=== PATIENT | female | born 1955 | race Caucasian/White ===

== ENCOUNTER 2016-08-02 22:59 | Emergency (ER) | payer OTHER ==
[2016-08-02 23:13] VITALS: TEMP 98.2
--- NOTE | 2016-08-03 | EDPHY ---
H & P Stated Complaint: cut on left 4th digit on ana cristina 1.5 hours - Personal History Current Tetanus/Diphtheria Vaccine: Yes Current Tetanus Diphtheria and Acellular Pertussis (TDAP): Yes Tetanus Vaccine Date: 2012 - Medical/Surgical History Hx Asthma: No Hx Chronic Respiratory Disease: No Hx Diabetes: No Hx Cardiac Disease: No Hx Renal Disease: No Hx Cirrhosis: No Hx Alcoholism: No Hx HIV/AIDS: No Hx Splenectomy or Spleen Trauma: No Other PMH: depression, foot surgeries - Social History Smoking Status: Never smoked HPI/ROS: Chief complaint: Left 4th finger laceration History of present illness: This is a 60-year-old female who presents to the emergency department for a laceration to the tip of her left 4th finger. Patient was using a food ana cristina when she struck the tip of her finger approximately an hour and half ago. She states it persistently bleeds. She denies other associated signs or symptoms including no abnormal coolness or paresthesias in the finger. No other injuries reported. Her tetanus is up-to- date. (Shalom Mejía) - Physical Exam Exam: General: Alert, nontoxic Skin: There is a 0.5 cm laceration to the tip of the left 4th finger. Inspection does not reveal foreign bodies or deep structure injuries. Musculoskeletal: Patient is flexing and extending her finger in the DIP, PIP and MCP joint well. Vascular: Capillary refill brisk in the left 4th finger. Radial pulses 2+. Neurologic: Sensation intact in the 4th finger using light touch and two-point discrimination. (Shalom Mejía) Constitutional: Initial Vital Signs Temperature (C) 36.8 C 08/02/16 23:09 Heart Rate 88 08/02/16 23:09 Respiratory Rate 14 08/02/16 23:09 Blood Pressure 106/83 H 08/02/16 23:09 O2 Sat (%) 96 08/02/16 23:09 O2 Delivery Mode Room Air Allergies/Adverse Reactions: No Known Allergies Allergy (Unverified 08/02/16 23:08) Home Medications: Medication Instructions Recorded Acyclovir 08/02/16 Wellbutrin 100mg SR (*) BID 08/02/16 Medical Decision Making Procedures: Procedure: Laceration repair. Verbal consent was obtained from the patient. The 0.5 cm laceration on the left 4th finger was anesthetized in the usual fashion. The wound was irrigated, draped and explored to its base with a gloved finger. There were no deep structures involved. No tendon injury was identified. The wound was repaired with 5 0 Prolene, 2 simple interrupted sutures. The wound repair was simple. The procedure was performed by myself. (Shalom Mejía) ED Course/Re-evaluation: Patient seen under the supervision of my secondary supervising physician Dr. Sheila De León. Patient presents to the emergency department for a left 4th finger laceration. The finger is neurovascularly intact. She has good musculoskeletal control of the finger. It is cleaned, repaired and dressed. Her tetanus is already up-to-date. She is discharged home. Home care is discussed. She is to follow up with her primary care doctor or a hand doctor for recheck. Return precautions are given. Patient voiced understanding and agreement with plan. (Shalom Mejía) Other Provider: MILO Supervision: I was the secondary supervising MD for this case. I agree with the diagnosis and treatment plan. (Sheila De León) Departure - Departure Disposition: Home, Routine, Self-Care Clinical Impression: Finger laceration Qualifiers: Encounter type: initial encounter Qualified Code(s): S61.219A - Laceration without foreign body of unspecified finger without damage to nail, initial encounter Condition: Good Instructions: Finger Laceration (ED) Additional Instructions: Follow-up with your primary care doctor when you return home this week to [place] Stitches to be removed in 7 days If symptoms worsen or new symptoms develop return to the emergency department for recheck Referrals: SOPHIA NEGRON [Other] - As per Instructions
[2016-08-03 00:14] VITALS: BP 110/80; PULSE 70; RESP 16; O2SAT 97
== END 2016-08-03 00:14 | disposition home or self-care (01) ==
DX: S61.215A Laceration without foreign body of left ring finger without damage to nail, initial encounter (principal); W27.4XXA Contact with kitchen utensil, initial encounter